=== PATIENT | male | born 1970 | race Caucasian/White ===

== ENCOUNTER 2024-04-24 08:57 | Emergency (ER) | payer OTHER, SELFPAY ==
[2024-04-24 08:57] VITALS: BMI 33.8
[2024-04-24 09:02] VITALS: BP 157/94
--- NOTE | 2024-04-24 10:07 | ED.GENMED ---
History of Present Illness
General
Chief Complaint: Abdominal Pain
Time Seen by Provider: 04/24/24 09:23
Travel History
Have you had any contact with someone who has COVID-19?: No
Do you have any symptoms of coronavirus? Fever > 100 degrees, chills, cough, shortness of breath, sore throat, loss of taste or smell, muscle aches, or headache?: No
History of Present Illness
History of Present Illness:
53 old male with history of GERD and eosinophilic esophagitis on PPIs presents to the emergency department for evaluation of persistent right upper quadrant abdominal pain for the past month or more. He had an outpatient ultrasound obtained by his
primary care physician at [facility] 10 days ago that showed no evidence for cholelithiasis or cholecystitis (per patient, I have no definitive records at this time to review). States he did adhere to a previously which seem to alleviate
his symptoms transiently. Notes definitive worsening w/ fatty food intake. Denies any fevers, chills, night sweats, steatorrhea, or juan colored stool. No prior abd surgeries.
Past History
Past History
ED Past Medical History: GERD and Other (Possible Sleep apnea)
ED Past Surgical History: Other
Social History
Tobacco: Non-smoker
Drug: None
Personal:
Living: with family
Employment: Employed
Family History
Family History: Negative Early CAD or CAD
Review of Systems
Review of Systems
Allergies reviewed?: Yes
All Other Systems: ROS reviewed and negative except as documented in HPI and ROS
Phy Exam
Physical Exam
Physical Exam:
GEN: Well appearing, NAD, WDWN
Eyes: PERRLA, EOMs intact, no scleral icterus
HENT: NCAT, oral mucosa moist
Lungs: CTAB, no wheezes, rales, rhonchi, normal chest wall excursion
Cardiac: RRR, no M/R/G
Abdomen: S, NT, ND, NABS, no masses or hepatosplenomegaly. Negative Hopkins sign
Neuro: AO x 3
MSK: No gross deformity or ecchymosis. No edema. No digital clubbing
Skin: No rashes, petechiae. Normal color, no pallor or jaundice.
Psych: Calm, cooperative, proper hygiene
Course
Orders/Labs/Results
Orders:
Orders
04/24/24 09:59
Complete Blood Count/With Diff Urgent
Comprehensive Metabolic Panel Urgent
Lipase Urgent
Abnormal Lab Results
04/24/24
09:59
MCH 32.4 H pg
(27.0-31.0)
Chloride 108 H mmol/L
(98-107)
Glucose 105 H mg/dl
(70-99)
04/24/24 09:59
04/24/24 09:59
Vital Signs
Initial and Last Documented VS:
Initial Vital Signs
Temp Pulse Resp BP Pulse Ox
98.2 F 73 18 157/94 100
04/24/24 09:02 04/24/24 09:02 04/24/24 09:02 04/24/24 09:02 04/24/24 09:02
Last Documented Vital Signs
Temp Pulse Resp BP Pulse Ox
98.2 F 77 16 134/87 100
04/24/24 09:02 04/24/24 10:50 04/24/24 10:50 04/24/24 10:50 04/24/24 10:50
MDM/Problems Addressed
MDM/Problems Addressed:
Patient has a reassuring physical exam with no peritoneal findings negative Hopkins sign. He had an outpatient unremarkable ultrasound. He has no symptoms suggestive of SMA syndrome, takes PPIs thus low suspicion for ulcer disease. His labs are
reassuring and vital signs are normal. Do not see any utility to CT scan at this time. I do find it most likely that the patient has biliary colic, will likely need outpatient HIDA scan for further workup, will refer to GI as an outpatient, trial
of NSAIDs and dicyclomine
*Critical Care Note
Total Time (30-74mins, 75-104mins- exclusive of procedures): Not Applicable
ED Attending Note
-
Portions of this chart may have been created with voice recognition software.� Occasional wrong word or��sound alike� substitutions may have occurred due to the inherent limitations of voice recognition software.
Discharge Plan
Departure
Patient Disposition: Home (Routine Discharge)
Date of Disposition: 04/24/24
Time of Disposition: 10:42
Patient with high blood pressure during this ER visit?: No
Discharge Problem:
Biliary colic
Instructions: Low-fat diet
Prescriptions:
New
diclofenac sodium 75 mg tablet,delayed release (DR/EC)
75 mg PO BID Qty: 14 0RF
dicyclomine 20 mg tablet
20 mg PO TID PRN (Reason: abdominal pain) Qty: 20 0RF
No Action
pantoprazole 40 MG tablet,delayed release (DR/EC)
40 mg PO DAILY Qty: 90 4RF
Referrals:
Quiana Broussard DO [Family Provider] -
Karely Quintana MD [Active] -
Activity Restrictions/Additional Instructions:
Follow up with your manager student services for a HIDA scan
You can also request your primary care physician to order this
A low fat diet is important to diminish pain
Interventions
Interventions:
*Risk Screen - Suicide Last Done: 04/24/24 09:07
*General Assessment Last Done: 04/24/24 10:05
*Neglect/Abuse Screening Last Done: 04/24/24 09:07
ED- Fall Risk Assessment Last Done: 04/24/24 10:51
*ED COVID-19 Vaccine History Last Done: 04/24/24 09:11
*Nursing Disposition Last Done: 04/24/24 10:51
QL-Qggaon-Nwogzujcux Assessment Last Done: 04/24/24 10:04
Discharge Date and Time
Discharge Date/Time: 04/24/24 10:51
Print Language: CAMBODIAN
[2024-04-24 10:10] LABS: % Basophils 0.4 % (0-2); % Eosinophils 3.1 % (0-6); % Immature Granulocytes 0.3 % (0-0.5); % Lymphocytes 25.7 % (20.5-51.1); % Monocytes 6.8 % (1.7-9.3); % Neutrophils 63.7 % (42.2-75.2); Absolute Eosinophils 0.2 10^3/uL (0-0.7); Absolute Monocytes 0.5 10^3/uL (0.1-0.6); Hematocrit 42.2 % (39.0-52.0); Hemoglobin 15.3 g/dL (13.0-18.0); Mean Corp Hgb Conc. 36.3 g/dL (33.0-37.0); Mean Corpuscular Hgb 32.4 pg (27.0-31.0); Mean Corpuscular Volume 89.4 fL (80.0-94.0); Mean Platelet Volume 9.6 fL (7.4-10.4); Nucleated Red Blood Cells % 0 % (-); Platelet Count 278 10^3/uL (130-400); Red Blood Cell Count 4.72 10^6/uL (4.70-6.10); Red Cell Dist. Width 11.9 % (11.5-14.5); White Blood Cell Count 7.8 10^3/uL (4.8-10.8)
[2024-04-24 10:32] LABS: ALT (SGPT) 27 U/L (0-50); AST (SGOT) 25 U/L (17-59); Alkaline Phosphatase 83 U/L (38-126); Blood Urea Nitrogen 20 mg/dl (9-20); Carbon Dioxide 26 mmol/L (22-30); Chloride 108 mmol/L (98-107); Estimated Creatinine Clearance 115 ml/min; Glucose 105 mg/dl (70-99); Lipase 45 U/L (23-300); Potassium 4.1 mmol/L (3.5-5.1); Sodium 140 mmol/L (135-145); Total Bilirubin 0.9 mg/dl (0.2-1.3); Total Protein 6.5 g/dl (6.3-8.2); eGFR > 60.00
[2024-04-24 10:50] VITALS: BP 134/87
== END 2024-04-24 10:51 | disposition home or self-care (01) ==
LOC: EMR 08:57
PROVIDERS: Physician Assistant; EMERGENCY PHYSICIAN Emergency Medicine; FAMILY PHYSICIAN Family Medicine
DX: K80.50 Calculus of bile duct without cholangitis or cholecystitis without obstruction (principal); K21.9 Gastro-esophageal reflux disease without esophagitis; K20.0 Eosinophilic esophagitis; Z79.899 Other long term (current) drug therapy; Z91.011 Allergy to milk products
CPT/HCPCS: 99283; 80053; 83690; 85025

== ENCOUNTER → 2024-06-28 06:47 | Day surgery (SDC) | payer OTHER, SELFPAY | LOC: GI 06:47 | PROVIDERS: ATTENDING PHYSICIAN Internal Medicine Gastroenterology | DX: Z12.11 Encounter for screening for malignant neoplasm of colon (principal); K64.8 Other hemorrhoids; K57.30 Diverticulosis of large intestine without perforation or abscess without bleeding; D12.8 Benign neoplasm of rectum; Z86.010 Personal history of colon polyps; K44.9 Diaphragmatic hernia without obstruction or gangrene; K22.89 Other specified disease of esophagus; K20.0 Eosinophilic esophagitis; K31.89 Other diseases of stomach and duodenum | CPT/HCPCS: 45380; 43239; 88305; 88342 ==

== ENCOUNTER → 2025-05-06 12:07 | Outpatient (REF) | payer OTHER, SELFPAY | LOC: PAVMRI 12:07 | PROVIDERS: ATTENDING PHYSICIAN Podiatrist Foot & Ankle Surgery; PRIMARYCARE PHYSICIAN Family Medicine | DX: M72.2 Plantar fascial fibromatosis (principal) | CPT/HCPCS: 73721 ==

== ENCOUNTER 2025-07-08 06:20 | Day surgery (SDC) | payer OTHER, SELFPAY ==
[2025-06-20 08:59] LABS: Hematocrit 46.4 % (39.0-52.0); Hemoglobin 15.9 g/dL (13.0-18.0); Mean Corp Hgb Conc. 34.3 g/dL (33.0-37.0); Mean Corpuscular Volume 93.0 fL (80.0-94.0); Platelet Count 279 10^3/uL (130-400); Red Cell Dist. Width 12.1 % (11.5-14.5)
[2025-06-20 09:31] LABS: Blood Urea Nitrogen 19 mg/dl (9-20); Calcium 8.8 mg/dl (8.4-10.2); Carbon Dioxide 28 mmol/L (22-30); Chloride 109 mmol/L (98-107); Glucose 87 mg/dl (70-99); Potassium 4.5 mmol/L (3.5-5.1); Sodium 141 mmol/L (135-145); eGFR > 60.00
[2025-06-20 14:16] VITALS: BMI 34.6
[2025-07-08 09:15] VITALS: BP 137/91
[2025-07-08 09:34] VITALS: BMI 34.6
[2025-07-08] MEDS: NORMOSOL-R/PLASMALYTE-A 1000 IV (09:43)
[2025-07-08 11:15] VITALS: BP 102/67
[2025-07-08 11:30] VITALS: BP 116/77
[2025-07-08 11:45] VITALS: BP 122/78
[2025-07-08 12:00] VITALS: BP 124/79
== END 2025-07-08 12:22 | disposition home or self-care (01) ==
LOC: SDS 06:20
PROVIDERS: ATTENDING PHYSICIAN Podiatrist Foot & Ankle Surgery; FAMILY PHYSICIAN Family Medicine
DX: M72.2 Plantar fascial fibromatosis (principal)
CPT/HCPCS: 29893; 28008; 36415; 80048; 85027